=== PATIENT | female | born 1985 | race African-American/Black ===

== ENCOUNTER 2018-07-02 13:14 | Emergency (ER) | payer OTHER ==
[~2018-07-02] VITALS: Ht 152.4 cm; Wt 59.4 kg
[2018-07-02] MEDS ORDERED: CLINDAMYCIN150 MG PO (13:25)
[2018-07-02] MEDS ORDERED: ZOFRAN4 MG PO (13:25)
== END 2018-07-02 13:30 | disposition home or self-care (01) ==
LOC: ED 13:14
DX: R22.0 Localized swelling, mass and lump, head (principal); R03.0 Elevated blood-pressure reading, without diagnosis of hypertension; J34.89 Other specified disorders of nose and nasal sinuses